=== PATIENT | female | born 1980 ===

== ENCOUNTER 2021-03-18 06:43 | Inpatient (IN) | payer BC ==
[2021-03-18] MEDS ORDERED: LIDOCAINE HCL 1% PRESERVATIVE FREE - 30ML VIAL ONE (07:26)
[2021-03-18] MEDS ORDERED: OXYTOCIN 20 UNITS in 0.9% NS 20 UNIT/1,000 ML INFUS.BAG IV ONE ×2 (07:26→11:58)
[2021-03-18] MEDS ORDERED: METHYLERGONOVINE MALEATE 0.2 MG/1 ML AMP IM PRN (08:07)
[2021-03-18] MEDS ORDERED: BENZOCAINE 20% 57 GM BOTTLE TP PRN (08:07)
[2021-03-18] MEDS ORDERED: BISACODYL 10 MG SUPP.RECT RC PRN (08:07)
[2021-03-18] MEDS ORDERED: oxyCODONE HCL 5 MG TABLET PO PRN (08:07)
[2021-03-18] MEDS ORDERED: WITCH HAZEL 50% (TUCKS) 40 PAD/JAR PAD TP PRN (08:07)
[2021-03-18] MEDS ORDERED: BENZOCAINE 28 GM HEMORRHOIDAL OINTMENT TP PRN (08:07)
[2021-03-18] MEDS ORDERED: DEXTROSE 5%-LACTATED RINGERS 1,000 ML IV SCH (08:15)
[2021-03-18] MEDS ORDERED: OXYTOCIN 20 UNITS in 0.9% NS 20 UNITS/1,000 ML INFUS.BAG IV SCH (08:15)
[2021-03-18 09:04] LABS: BASO % 0.3 % (0-2.0); HEMATOCRIT 42.8 % (32.4-45.2); HEMOGLOBIN 14.4 GM/dL (10.7-15.3); LYMPH % 8.6 % (8-40); MCH 29.7 pg (25.7-33.7); MCHC 33.5 g/dl (32.0-36.0); MEAN CELL VOLUME 88.7 fl (80-96); NEUT % 85.1 % (42.8-82.8); PLATELET COUNT 162 10^3/uL (134-434); RBC 4.83 M/mm3 (3.60-5.2); RDW 13.2 % (11.6-15.6); WHITE BLOOD COUNT 9.4 K/mm3 (4.0-10.0)
[2021-03-18 09:14] LABS: INR 0.92 (0.83-1.09); PROTHROMBIN TIME (PATIENT) 11.3 SEC (9.7-13.0)
[2021-03-18 09:16] LABS: ACTIVATED PTT 26.2 SECONDS (25.2-36.5)
[2021-03-18 09:20] LABS: CALCIUM 8.6 mg/dL (8.5-10.1)
[2021-03-18 09:21] LABS: BLOOD UREA NITROGEN 7.6 mg/dL (7-18)
[2021-03-18 09:24] LABS: CREATININE 0.6 mg/dL (0.55-1.3)
[2021-03-18] MEDS: PRENATAL VITAMINS W/ FOLIC ACID TABLET (FP) PO SCH (10:00)
[2021-03-18] MEDS: ACETAMINOPHEN 325 MG TABLET (FP) PO PRN ×2 (10:00→22:10)
[2021-03-18] MEDS: IBUPROFEN 600 MG TABLET (FP) PO PRN ×3 (10:00→22:09)
[2021-03-18 10:51] VITALS: BMI 25.0
[2021-03-19] MEDS: SENNOSIDES/DOCUSATE COMBO (SENNA PLUS) TABLET (UD) PO PRN ×2 (01:17→22:07)
[2021-03-19 08:52] LABS: BASO % 0.5 % (0-2.0); EOS % 0.4 % (0-4.5); HEMATOCRIT 38.2 % (32.4-45.2); LYMPH % 25.8 % (8-40); MCH 29.8 pg (25.7-33.7); MEAN CELL VOLUME 87.5 fl (80-96); MONO % 7.3 % (3.8-10.2); PLATELET COUNT 149 10^3/uL (134-434); RBC 4.36 M/mm3 (3.60-5.2); RDW 13.3 % (11.6-15.6)
[2021-03-19] MEDS: PRENATAL VITAMINS W/ FOLIC ACID TABLET (FP) PO SCH (09:45)
[2021-03-19] MEDS ORDERED: ZOLPIDEM TARTRATE 5 MG TABLET PO PRN (21:51)
[2021-03-20] MEDS: PRENATAL VITAMINS W/ FOLIC ACID TABLET (FP) PO SCH (11:46)
[2021-03-20 16:12] VITALS: BP 111/68; PULSE 84; TEMP 98.4
== END 2021-03-20 19:17 | disposition home or self-care (01) | DRG 807 ==
LOC: JDEL 06:43 → JLDR 07:12 → J3W 12:35
PROVIDERS: ADMIT Obstetrics & Gynecology; ATTEND Obstetrics & Gynecology
PROC: 10E0XZZ Delivery of Products of Conception, External Approach (ICD-10-PCS; principal; 2021-03-18)
PROC: 0W8NXZZ Division of Female Perineum, External Approach (ICD-10-PCS; 2021-03-18)
DX: O62.3 Precipitate labor (principal); Z37.0 Single live birth; Z3A.39 39 weeks gestation of pregnancy
CPT/HCPCS: 36415; 59409; 72170-TC-FY; 80048; 85025; 85610; 85730; 86850; 86900; 86901; C9803; U0003; U0005